=== PATIENT | female | born 1985 | race Caucasian/White ===

== ENCOUNTER 2016-08-02 09:28 | Emergency (ER) | payer MEDICAID ==
[2016-08-02 09:45] VITALS: BP 120/75
[2016-08-02] MEDS ORDERED: Ondansetron ODT TAB* 4 MG PO ONE (10:20)
--- NOTE | 2016-08-02 10:28 | UC ---
Abdominal Pain Female HPI - HPI Summary HPI Summary: Nausea, vomiting x 5 since noon yesterday. Has had 4 BMs, 2 formed and 2 loose. Denies fever or focal abdominal pain. Period is a few days late. 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 - History of Current Complaint Chief Complaint: UCGeneralIllness Stated Complaint: CANT KEEP ANYTHING DOWN Time Seen by Provider: 08/02/16 10:06 Hx Obtained From: Patient Hx Last Menstrual Period: 07/01/16 ?: No Onset/Duration: Gradual Onset, Lasting Hours Timing: Constant Severity Initially: Moderate Severity Currently: Moderate Location: Diffuse Radiates: No Character: Other - nausea Aggravating Factor(s): Food, Movement Alleviating Factor(s): NPO Associated Signs and Symptoms: Positive: Decreased Appetite, Nausea, Vomiting. Negative: Fever, Urinary Symptoms, Vaginal Bleeding Allergies/Adverse Reactions: Allergies Allergy/AdvReac Type Severity Reaction Status Date / Time Adhesive Tape Allergy Rash Verified 08/02/16 09:45 Latex Allergy Rash Verified 08/02/16 09:45 Prednisone AdvReac See Comment Verified 08/02/16 09:45 PMH/Surg Hx/FS Hx/Imm Hx Endocrine History Of: Denies: Diabetes, Thyroid Disease Cardiovascular History Of: Denies: Cardiac Disorders, Hypertension, Pacemaker/ICD Respiratory History Of: Denies: COPD, Asthma GI/ History Of: Reports: Kidney Stones - 2009, SURGERY Denies: Ulcer, Renal Disease Neurological History Of: Reports: Migraine - EXCEDRIN ONEIL 1-2 TABS PRN, LAST EPISODE - Surgical History Surgical History: Yes Surgery Procedure, Year, and Place: ganglion cyst removed May 2013 [facility] [place]. KIDNEY STONES 2008. left knee scope - Family History Known Family History: Positive: Hypertension Negative: Cardiac Disease, Diabetes - Social History Alcohol Use: Rare Alcohol Amount: 3-4 DRINKS/ YEAR Substance Use Type: None Smoking Status (MU): Heavy Every Day Tobacco Smoker Type: Cigarettes Amount Used/How Often: < 1/2 ppd 10 YEARS Length of Time of Smoking/Using Tobacco: 10 YEARS Have You Smoked in the Last Year: Yes When Did the Patient Quit Smoking/Using Tobacco: 10/31/15 Household Exposure Type: Cigarettes Review of Systems Constitutional: Negative Skin: Negative Eyes: Negative ENT: Negative Respiratory: Negative Cardiovascular: Negative Gastrointestinal: Vomiting Genitourinary: Negative Motor: Negative Neurovascular: Negative Musculoskeletal: Negative Neurological: Negative Psychological: Negative All Other Systems Reviewed And Are Negative: Yes Physical Exam Triage Information Reviewed: Yes Appearance: Well-Appearing, No Pain Distress, Well-Nourished Vital Signs: Initial Vital Signs Temp 98.4 F 08/02/16 09:38 Pulse 78 08/02/16 09:38 Resp 18 08/02/16 09:38 BP 120/75 08/02/16 09:38 Pulse Ox 98 08/02/16 09:38 Vital Signs Reviewed: Yes Eye Exam: Normal Eyes: Positive: Conjunctiva Clear ENT Exam: Normal ENT: Positive: Normal ENT inspection, Hearing grossly normal, Pharynx normal, TMs normal Dental Exam: Normal Neck exam: Normal Neck: Positive: Supple, Nontender, No Lymphadenopathy Respiratory Exam: Normal Respiratory: Positive: Chest non-tender, Lungs clear, Normal breath sounds, No respiratory distress, No accessory muscle use Cardiovascular Exam: Normal Cardiovascular: Positive: RRR, No Murmur Abdomen Description: Positive: No Organomegaly, Soft. Negative: CVA Tenderness (R), CVA Tenderness (L), Distended, Guarding, McBurney's Point Tenderness, Peritoneal Signs Musculoskeletal Exam: Normal Neurological Exam: Normal Psychological Exam: Normal Skin Exam: Normal Abd Pain Female Course/Dx - Differential Dx/Diagnosis Provider Diagnoses: Acute gastroenteritis Discharge - Discharge Plan Condition: Stable Disposition: HOME Prescriptions: Ondansetron TAB* [Zofran 4 MG Tab*] 4 mg PO Q6H PRN #6 tab PRN Reason: Nausea Patient Education Materials: Gastroenteritis (ED) Referrals: Alejandro Byrne MD [Primary Care Provider] - If Needed Additional Instructions: Please return for care if you have increasing abdominal pain, significant blood in vomit or stool, or if your vomiting is not completely resolved by tomorrow night.
== END 2016-08-02 10:34 | disposition home or self-care (01) ==
LOC: UCEAST 09:28
DX: K52.9 Noninfective gastroenteritis and colitis, unspecified (principal); F17.210 Nicotine dependence, cigarettes, uncomplicated
CPT/HCPCS: 84702; 99212; A9270-GY; G0463

== ENCOUNTER 2016-10-22 08:01 | Emergency (ER) | payer MEDICAID, OTHER ==
[2016-10-22] MEDS ORDERED: Ketorolac INJ* 30 MG/ML 1 ML VIAL IV PUSH ONE (08:56)
[2016-10-22] MEDS ORDERED: Ondansetron INJ* 2 MG/ML VIAL IV ONE (08:56)
[2016-10-22 09:06] LABS: Hematocrit 43 % (35-47); Hemoglobin 14.3 g/dl (12.0-16.0); Mean Corpuscular HGB Conc 33 g/dl (31-36); Mean Corpuscular Hemoglobin 31 pg (27-31); Mean Corpuscular Volume 94 fL (80-97); Mean Platelet Volume 9 um3 (7.4-10.4); Red Blood Count 4.56 10^6/ul (4.0-5.4); Red Cell Distribution Width 13 % (10.5-15); White Blood Count 12.1 10^3/ul (3.5-10.8)
[2016-10-22 09:09] LABS: UR Preg Internal Control QC Line Present
[2016-10-22 09:10] LABS: Manual Entry Verification HAN0055
[2016-10-22 09:12] LABS: Urine Bacteria 2+ (Absent); Urine Bilirubin Negative (Negative); Urine Glucose Negative (Negative); Urine Nitrite Positive (Negative)
[2016-10-22] MEDS ORDERED: cefTRIAXone VIAL(*) 1,000 MG in NS 0.9% 50 ML* 50 ML IVPB ONE (09:29)
--- NOTE | 2016-10-22 09:34 | RAD ---
INDICATION: Right flank pain COMPARISON: Renal sonogram March 01, 2016 TECHNIQUE: Noncontrast axial source images were acquired from the level hemidiaphragms to the symphysis pubis as part of CT imaging for renal stone. Lung bases: The lung bases are clear. Liver: The liver is normal in size. Noncontrast imaging shows no evidence of a hepatic mass or ductal dilatation. Gallbladder: There are no calcified gallstones. There is no evidence of wall thickening or pericholecystic fluid.. Spleen: The spleen is normal in size. The noncontrast CT appearance is normal. Pancreas: Noncontrast imaging shows no pancreatic mass or ductal dilitation. Adrenal glands: No masses are identified. Kidneys/Bladder: The CT appearance of the kidneys essentially unchanged from the February 26, 2016 examination. The right kidney remains enlarged relative to left and there is ill-defined hypodense expansion of the superior pole which on earlier sonography represented a cyst. This may be minimally larger. There is hydronephrosis with air within the collecting system. There is right-sided hydronephrosis. The only significant change has been the interval development of several additional small calcifications. There is no right-sided perinephric inflammatory change or evidence of a perinephric abscess. The right ureter is normal in caliber. The left kidney is unremarkable. Suggest correlation with clinical history and urologic referral as necessary. Adenopathy: There is no evidence of intraperitoneal or retroperitoneal adenopathy. Evaluation is limited without oral contrast. Fluid collections: There are no free or localized fluid collections. Vessels: The aorta and iliac vessels are normal in caliber. There are no significant atherosclerotic changes. The IVC appears normal Pelvic organs: The uterus and adnexa appear normal GI tract: Evaluation of the bowel is limited without oral contrast. The stomach, small bowel, and lower GI tract appear grossly normal. There are no obstructive findings. The appendix is visualized and appears normal. Soft tissues: No soft tissue abnormalities of the extraperitoneal abdomen or pelvis are identified. Osseous structures: There are no acute osseous findings. IMPRESSION: ENLARGED HYPODENSE RIGHT KIDNEY PERHAPS WITH AN UPPER POLE DOCUMENTED ON EARLIER ULTRASONOGRAPHY TO REPRESENT A CYST. HYDRONEPHROSIS WITH AIR WITHIN THE COLLECTING SYSTEM AND RIGHT-SIDED NEPHROLITHIASIS. WITH THE EXCEPTION OF A SLIGHT INCREASE IN THE NUMBER OF CALCIFICATIONS WITHIN THE COLLECTING SYSTEM THERE IS NO INTERVAL CHANGE.. SUGGEST UROLOGIC REFERRAL. FINDINGS DISCUSSED WITH EMERGENCY DEPARTMENT.
[2016-10-22 09:35] LABS: BUN/Creatinine Ratio 9.5 (8-20); C Reactive Protein 14.16 mg/L (< 5.00); Calcium 8.7 mg/dL (8.6-10.3); EGFR African American 102.4 (>60); EGFR Non-African American 79.6 (>60); Potassium 4.1 mmol/L (3.5-5.0); Total Bilirubin 0.5 mg/dL (0.2-1.0)
[2016-10-22] MEDS ORDERED: cefTRIAXone(*) 1 GM ADVAN ONE (09:43)
[2016-10-22] MEDS ORDERED: NS 0.9% 1000 ML* 1,000 ML IV ONE (09:56)
[2016-10-22] MEDS ORDERED: Morphine INJ* 4 MG/ML 1 ML SYRINGE IV ONE (12:08)
[2016-10-22 13:49] VITALS: BP 137/69
--- NOTE | 2016-10-23 19:15 | ED ---
Clayton Trujillo Anna, scribed for Jorge Ulloa MD on 10/22/16 at 0853 . Abdominal Pain/Female - HPI Summary HPI Summary: Patient is a 31 y/o female coming to [facility] presenting with the sudden onset of constant, right flank pain that began at 0200 this morning. The pain radiates to her front. She has felt nauseous and has not eaten anything. Denies diarrhea , constipation. LNMP was last week. Her history is significant for kidney stones , most recently in 2010. This pain is very similar to her previous kidney stones. Her history is also significant for kidney infection. Patient medications were reviewed on this visit. - History of Current Complaint Chief Complaint: EDFlankPain Stated Complaint: LOWER RT ABD PAIN Time Seen by Provider: 10/22/16 08:16 Hx Obtained From: Patient Hx Last Menstrual Period: 07/01/16 Onset/Duration: Sudden Onset, Lasting Hours, Still Present Timing: Constant Severity Initially: Moderate Severity Currently: Moderate Pain Intensity: 5 Allergies/Adverse Reactions: Allergies Allergy/AdvReac Type Severity Reaction Status Date / Time Adhesive Tape Allergy Rash Verified 10/22/16 08:04 Latex Allergy Rash Verified 10/22/16 08:04 Prednisone AdvReac See Comment Verified 10/22/16 08:04 PMH/Surg Hx/FS Hx/Imm Hx Endocrine/Hematology History: Denies: Hx Diabetes, Hx Thyroid Disease Cardiovascular History: Denies: Hx Hypertension, Hx Pacemaker/ICD Respiratory History: Denies: Hx Asthma, Hx Chronic Obstructive Pulmonary Disease (COPD) GI History: Denies: Hx Ulcer History: Reports: Hx Kidney Infection, Hx Kidney Stones - 2009, SURGERY, Other Problems/Disorders - hx of stones Denies: Hx Renal Disease Musculoskeletal History: Reports: Hx Tendonitis - BOTH WRISTS, Other Musculoskeletal History - LEFT KNEE INJURY, TENNIS ELBOW, RIGHT Denies: Hx Scoliosis Sensory History: Denies: Hx Contacts or Glasses, Hx Hearing Aid Opthamlomology History: Denies: Hx Contacts or Glasses Neurological History: Reports: Hx Headaches, Hx Migraine - EXCEDRIN ONEIL 1-2 TABS PRN, 11/02/15 LAST EPISODE Denies: Other Neuro Impairments/Disorders Psychiatric History: Denies: Hx Panic Disorder - Surgical History Surgery Procedure, Year, and Place: ganglion cyst removed May 2013 [facility] [place]. KIDNEY STONES 2008. left knee scope Hx Anesthesia Reactions: No Infectious Disease History: No Infectious Disease History: Denies: Hx Clostridium Difficile, Hx Hepatitis, Hx Human Immunodeficiency Virus (HIV), Hx of Known/Suspected MRSA, Hx Shingles, Hx Tuberculosis, Hx Known/ Suspected VRE, Hx Known/Suspected VRSA, History Other Infectious Disease, Traveled Outside the [place] in Last 30 Days - Family History Known Family History: Positive: Hypertension Negative: Cardiac Disease, Diabetes - Social History Alcohol Use: Rare Alcohol Amount: 3-4 DRINKS/ YEAR Substance Use Type: Reports: None Smoking Status (MU): Light Every Day Tobacco Smoker Type: Cigarettes Amount Used/How Often: < 1/2 ppd 10 YEARS Length of Time of Smoking/Using Tobacco: 10 YEARS Have You Smoked in the Last Year: Yes Review of Systems Gastrointestinal: Other - Denies constipation Positive: Abdominal Pain, Nausea. Negative: Diarrhea Psychological: Normal All Other Systems Reviewed And Are Negative: Yes Physical Exam - Summary Physical Exam Summary: VITAL SIGNS: Reviewed. GENERAL: Patient is a well-developed and nourished female who is lying comfortable in the stretcher. Patient is not in any acute respiratory distress. HEAD AND FACE: Normocephalic and atraumatic. EYES: PERRLA, EOMI x 2, No injected conjunctiva. EARS: Hearing grossly intact. Ear canals and tympanic membranes are WNL. MOUTH: Oropharynx within normal limits. NECK: Supple, trachea is midline, no adenopathy, no JVD. CHEST: Symmetric, no tenderness at palpation LUNGS: Clear to auscultation bilaterally. No wheezing or crackles. CVS: RRR, S1 and S2 present, no murmurs or gallops appreciated. ABDOMEN: Right CVA tenderness. Soft. No signs of distention. Positive bowel sounds. No rebound no guarding, and no masses palpated. No abdominal bruit or pulsations. EXTREMITIES: FROM in all major joints, no edema, no cyanosis or clubbing. NEURO: Alert and oriented x 3. No acute neurological deficits. Speech is normal. SKIN: Dry and warm Triage Information Reviewed: Yes Vital Signs On Initial Exam: Initial Vitals Temp Pulse Resp BP Pulse Ox 97.6 F 104 18 150/74 100 10/22/16 08:05 10/22/16 08:05 10/22/16 08:05 10/22/16 08:05 10/22/16 08:05 Vital Signs Reviewed: Yes Diagnostics - Vital Signs Vital Signs Temp Pulse Resp BP Pulse Ox 10/22/16 08:05 97.6 F 104 18 150/74 100 - Laboratory Result Diagrams: 10/22/16 08:50 10/22/16 08:45 Lab Statement: Any lab studies that have been ordered have been reviewed, and results considered in the medical decision making process. - CT CT abd/pel WO CT Interpretation: Positive (See Comments) CT Interpretation Completed By: Radiologist - IMPRESSION: ENLARGED HYPODENSE RIGHT KIDNEY PERHAPS WITH AN UPPER POLE DOCUMENTED ON EARLIER ULTRASONOGRAPHY TO REPRESENT A CYST. HYDRONEPHROSIS WITH AIR WITHIN THE COLLECTING SYSTEM AND RIGHT-SIDED NEPHROLITHIASIS. WITH THE EXCEPTION OF A SLIGHT INCREASE IN THE NUMBER OF CALCIFICATIONS WITHIN THE COLLECTING SYSTEM THERE IS NO INTERVAL CHANGE.. SUGGEST UROLOGIC REFERRAL. FINDINGS DISCUSSED WITH EMERGENCY DEPARTMENT. Re-Evaluation - Re-Evaluation First Eval Re-Evaluation Time: 12:13 Comment: The pain is currently 3/10. Discussed results and plan of care with patient. Patient verbalizes understanding and is agreeable with plan. Abdominal Pain Fem Course/Dx - Course Course Of Treatment: Test results show slight increase in WBC, CRP. Urine shows positive UTI. Abd/Pel CT reveals enlarged hypodense right kidney with a cyst and hydronephrosis with air within the collecting system and right-sided nephrolithiasis. No interval change. In the ED course, pt given IV fluids and Toradol for the pain, thinking the pt may have a kidney stone. The patient was started on Rocephin for her UTI. Now the patient does not have a kidney stone, she has only a right kidney cyst which is well known to the pt. Pt will be following with urologist. She was given an additional dose of morphine for the pain and is much more comfortable. Since she has no fever and her vital signs are stable, I believe she can be treated for UTI/pyelonephritis on an outpatient basis with Ciprofloxacin. She was instructed to return to the ED for fever, an increase in pain, nausea, vomiting, or any other symptoms. She understands and agrees. - Diagnoses Provider Diagnoses: UTI (urinary tract infection), Kidney Cyst - Provider Notifications Discussed Care Of Patient With: Dr. Hollingsworth (radiology) at 0928. Looks like patient has pyelonephritis. Discharge - Discharge Plan Condition: Stable Disposition: HOME Prescriptions: Ciprofloxacin TAB* [Cipro 500 MG TAB*] 500 mg PO BID #6 tab HYDROcodone/ACETAMIN 5-325 MG* [Tabernash 5-325 TAB*] 1 tab PO Q4H PRN #10 tab MDD 4 tabs /day PRN Reason: Pain Patient Education Materials: Ciprofloxacin (By mouth), Hydrocodone/ Acetaminophen (By mouth), Urinary Tract Infection in Women (ED), Kidney Cyst (ED ) Forms: *Work Release Referrals: Alejandro Byrne MD [Primary Care Provider] - Additional Instructions: Follow up with primary care physician in 2-3 days. Return to ED for new or worsening symptoms. The documentation as recorded by the Clayton mejias Anna accurately reflects the service I personally performed and the decisions made by , Jorge Ulloa MD.
--- NOTE | 2016-10-24 09:43 | PN ---
Progress Note - Progress Note Note: Patient preliminary urine culture grew E coli >100,000. patient placed on cipro will wait final culture.
== END 2016-10-22 13:49 | disposition home or self-care (01) ==
LOC: ED 08:01
DX: N39.0 Urinary tract infection, site not specified (principal); N28.1 Cyst of kidney, acquired; F17.210 Nicotine dependence, cigarettes, uncomplicated
CPT/HCPCS: 36415; 74176; 80053; 81003; 81015; 81025; 83605; 83690; 85025; 86140; 87077; 87086; 87186; 96360; 96374; 96375; 96376; 99283; J0696; J1885; J2270; J2405

== ENCOUNTER 2016-11-19 08:13 | Emergency (ER) | payer SELFPAY ==
[2016-11-19 08:27] VITALS: BP 134/69
--- NOTE | 2016-11-19 08:53 | UC ---
Jhonatan Trujillo Claudia, scribed for Eric Vincent MD on 11/19/16 at 0846 . Respiratory Complaint HPI - HPI Summary HPI Summary: 31 year old female presents to the [facility] with a constant cough lasting the past week or so. Pt admits to nasal discharge, chills but denies any fever. Pt states SOB when she is coughing. She states the cough is productive occasionally. but other times is a dry cough. She notes that this am she was coughing so much that she was unable to breath and decided to come to the [facility]. She denies any aggravating or alleviating factors, but notes she takes some NyQuil to help with sleeping. - History of Current Complaint Chief Complaint: UCRespiratory Stated Complaint: URI Time Seen by Provider: 11/19/16 08:41 Hx Obtained From: Patient Hx Last Menstrual Period: 2 months ago Onset/Duration: Gradual Onset, Lasting Weeks Character: Cough: Productive Associated Signs And Symptoms: Negative: Fever, Chills - Allergies/Home Medications Allergies/Adverse Reactions: Allergies Allergy/AdvReac Type Severity Reaction Status Date / Time Adhesive Tape Allergy Rash Verified 10/22/16 08:04 Latex Allergy Rash Verified 10/22/16 08:04 Prednisone AdvReac See Comment Verified 10/22/16 08:04 PMH/Surg Hx/FS Hx/Imm Hx Previously Healthy: Yes - Surgical History Surgical History: Yes Surgery Procedure, Year, and Place: ganglion cyst removed May 2013 [facility] – [place]. KIDNEY STONES 2008. left knee scope - Family History Known Family History: Positive: Hypertension, Diabetes Negative: Cardiac Disease - Social History Occupation: Employed Full-time Alcohol Use: Rare Alcohol Amount: 3-4 DRINKS/ YEAR Substance Use Type: None Smoking Status (MU): Light Every Day Tobacco Smoker Type: Cigarettes Amount Used/How Often: < 1/2 ppd 10 YEARS Length of Time of Smoking/Using Tobacco: 10 YEARS Have You Smoked in the Last Year: Yes When Did the Patient Quit Smoking/Using Tobacco: 10/31/15 Household Exposure Type: Cigarettes Review of Systems Constitutional: Fever - NO FEVER, Chills Skin: Negative Eyes: Negative ENT: Nasal Discharge Respiratory: Shortness Of Breath, Cough Cardiovascular: Negative Gastrointestinal: Negative Genitourinary: Negative Motor: Negative Neurovascular: Negative Musculoskeletal: Negative Neurological: Negative Psychological: Negative All Other Systems Reviewed And Are Negative: Yes Physical Exam Triage Information Reviewed: Yes Appearance: Well-Appearing, No Pain Distress, Well-Nourished Vital Signs: Initial Vital Signs Temp 98.6 F 11/19/16 08:24 Pulse 71 11/19/16 08:24 Resp 18 11/19/16 08:24 BP 134/69 11/19/16 08:24 Pulse Ox 99 11/19/16 08:24 Vital Signs Reviewed: Yes Eyes: Positive: Conjunctiva Clear ENT: Positive: Normal ENT inspection, Hearing grossly normal, Pharynx normal Neck exam: Normal Neck: Positive: Supple, Nontender, No Lymphadenopathy Respiratory Exam: Normal Respiratory: Positive: Chest non-tender, Lungs clear, Normal breath sounds Cardiovascular: Positive: RRR, No Murmur, Pulses Normal Skin Exam: Normal UC Diagnostic Evaluation - Laboratory O2 Sat by Pulse Oximetry: 99 Respiratory Course/Dx - Differential Dx/Diagnosis Provider Diagnoses: VIRAL BRONCHITIS Discharge - Discharge Plan Condition: Stable Disposition: HOME Prescriptions: Guaifenesin-Codeine [Cheratussin AC] 10 ml PO Q8H PRN #120 ml MDD 30 ml PRN Reason: Cough Patient Education Materials: Acute Bronchitis (ED) Referrals: Alejandro Byrne MD [Primary Care Provider] - If Needed Additional Instructions: viral bronchitis no need for any antibiotics cont. with rest, increase fluid, tylenol as needed for pain or fever The documentation as recorded by the Jhonatan mejias Claudia accurately reflects the service I personally performed and the decisions made by Melisa snell Hossein, MD.
== END 2016-11-19 09:00 | disposition home or self-care (01) ==
LOC: UCEAST 08:13
DX: J20.8 Acute bronchitis due to other specified organisms (principal)
CPT/HCPCS: 99212; G0463

== ENCOUNTER 2017-03-11 08:13 | Emergency (ER) | payer SELFPAY ==
[2017-03-11] MEDS ORDERED: Ketorolac INJ* 30 MG/ML 1 ML VIAL IV PUSH ONE (08:38)
[2017-03-11] MEDS ORDERED: Ondansetron INJ* 2 MG/ML VIAL IV ONE (08:39)
--- NOTE | 2017-03-11 08:51 | ED ---
Abdominal Pain/Female - HPI Summary HPI Summary: Patient is a 31yo F with a history of kidney stones presents with right flank pain rated a 5/10 which radiates to the right lower quadrant. She notes to darkening urine, but denies any feelings of obstruction. Endorses nausea. Denies vomiting/diarrhea/constipation. Denies vaginal bleeding or discharge. Denies fevers, sweats, or chills. Last visit early in the year, they noted many kidney stones still in the kidney, but nothing obstructing. She was given abx, and states she still has some. The pain is sharp and cramping, intermittent and worse with movement. Better with rest and deep breaths. Denies weakness or other complaints at this time. - History of Current Complaint Chief Complaint: EDFlankPain Stated Complaint: RT FLANK PAIN Time Seen by Provider: 03/11/17 08:31 Hx Obtained From: Patient Hx Last Menstrual Period: 2 months ago ?: No Onset/Duration: Sudden Onset Timing: Intermittent Episode Lasting Severity Initially: Moderate Severity Currently: Moderate Pain Intensity: 4 Pain Scale Used: 0-10 Numeric Location: Flank Radiates: Yes Radiates to: RLQ Character: Sharp, Cramping Aggravating Factor(s): Nothing Alleviating Factor(s): Nothing Associated Signs and Symptoms: Positive: Nausea - Risk Factors Ectopic Risk Factor: Negative Ovarian Torsion Risk Factor: Reproductive Age Allergies/Adverse Reactions: Allergies Allergy/AdvReac Type Severity Reaction Status Date / Time Adhesive Tape Allergy Rash Verified 03/11/17 08:17 Latex Allergy Rash Verified 03/11/17 08:17 Prednisone AdvReac See Comment Verified 03/11/17 08:17 PMH/Surg Hx/FS Hx/Imm Hx Previously Healthy: Yes Endocrine/Hematology History: Denies: Hx Diabetes, Hx Thyroid Disease Cardiovascular History: Denies: Hx Hypertension, Hx Pacemaker/ICD Respiratory History: Denies: Hx Asthma, Hx Chronic Obstructive Pulmonary Disease (COPD) GI History: Denies: Hx Ulcer History: Reports: Hx Kidney Infection, Hx Kidney Stones - 2010, SURGERY, Other Problems/Disorders - hx of stones Denies: Hx Renal Disease Musculoskeletal History: Reports: Hx Tendonitis - BOTH WRISTS, Other Musculoskeletal History - LEFT KNEE INJURY, TENNIS ELBOW, RIGHT Denies: Hx Scoliosis Sensory History: Denies: Hx Contacts or Glasses, Hx Hearing Aid Opthamlomology History: Denies: Hx Contacts or Glasses Neurological History: Reports: Hx Headaches, Hx Migraine - EXCEDRIN ONEIL 1-2 TABS PRN, 11/02/15 LAST EPISODE Denies: Other Neuro Impairments/Disorders Psychiatric History: Denies: Hx Panic Disorder - Surgical History Surgery Procedure, Year, and Place: ganglion cyst removed May 2013 [facility] [place]. KIDNEY STONES 2008. left knee scope Hx Anesthesia Reactions: No - Immunization History Hx Pertussis Vaccination: No Immunizations Up to Date: Unable to Obtain/Confirm Infectious Disease History: No Infectious Disease History: Denies: Hx Clostridium Difficile, Hx Hepatitis, Hx Human Immunodeficiency Virus (HIV), Hx of Known/Suspected MRSA, Hx Shingles, Hx Tuberculosis, Hx Known/ Suspected VRE, Hx Known/Suspected VRSA, History Other Infectious Disease, Traveled Outside the [place] in Last 30 Days - Family History Known Family History: Positive: Hypertension, Diabetes Negative: Cardiac Disease - Social History Occupation: Employed Full-time Lives: With Family Alcohol Use: Rare Alcohol Amount: 3-4 DRINKS/ YEAR Hx Substance Use: No Substance Use Type: Reports: None Hx Tobacco Use: Yes Smoking Status (MU): Heavy Every Day Tobacco Smoker Type: Cigarettes Amount Used/How Often: < 1/2 ppd 10 YEARS Length of Time of Smoking/Using Tobacco: 10 YEARS Have You Smoked in the Last Year: Yes Review of Systems - ROS Summary Review of Systems Summary: Constitutional: The patient denies fever, EPPS. HEENT: Head: The patient denies headaches or dizziness. Eyes: The patient denies diplopia, blurry vision, eye pain, eye discharge, photophobia. Throat: The patient denies sore throats or hoarseness. Cardiovascular: The patient denies chest pain, palpitations, syncope, night cramps, or orthostasis. Respiratory: The patient denies cough, sputum production, hemoptysis, dyspnea, wheezing. Gastrointestinal: The patient denies odynophagia, dysphagia, hematemesis, melenemesis. Postive for nausea and RLQ pain referred from Right flank. Denies vomiting. Denies constipation or diarrhea. Genitourinary: Patient endorses darkened urine, but denies gross hematuria. Patient endorses right sided back pain. Denies vaginal discharge, vaginal bleeding. Denies other urinary symptoms. Endocrine: The patient denies polydipsia, polyuria, or polyphagia. Muscles: The patient denies myalgia, strain or weakness. Joints: The patient denies arthralgia and/or arthritis. Neurologic: The patient denies headache, loss of consciousness, or seizure. Dermatologic: The patient denies hyperpigmentation, rash, or photosensitivity. Constitutional: Negative Negative: Fever, Chills, Fatigue Eyes: Negative Cardiovascular: Negative Respiratory: Negative Negative: Shortness Of Breath, Cough Positive: Nausea. Negative: Abdominal Pain, Vomiting, Diarrhea Positive: other - darkened urine Musculoskeletal: Negative Skin: Negative Neurological: Negative All Other Systems Reviewed And Are Negative: Yes Physical Exam - Summary Physical Exam Summary: Appearance: WDW, comfortable, pleasant, alert Skin: Soft dry skin, no lesions. Nailbeds pink with no cyanosis or clubbing. No petechia noted. Eyes: VETO, EOMI, Conjunctiva pink with no redness or exudates. Mouth: Dentition without lesions. Moist mucosa Neck: Full range of motion. Palpable thyroid. Trachea at midline. No lymphadenopathy. Pulm: Chest symmetrical expansion. No deformities on posterior chest wall. Lungs clear to auscultation and percussion, without adventitious sounds. CV: No JVD. No deformities on anterior chest wall. Heart sounds-RRR, Normal S1 and single S2. No S3, S4, rubs, or murmurs. Carotids 2+ bilaterally without bruits. . exam not performed GI: Bowel sounds WNL in all 4 quadrants. No pain on deep palpation of all 4 quadrants. Negative ferrer's, negative obturator. No pain over mcburney's point. CVA tenderness on R flank. Musculoskeletal: Flexion and extension of neck without limitations. ROM WNL in all extremities. No deformities noted. Pulses full and equal. Neuro: Motor strength is 5/5 in upper and lower extremities bilaterally. A&OX3 Psych: Logical, coherent Triage Information Reviewed: Yes Vital Signs On Initial Exam: Initial Vitals Temp Pulse Resp BP Pulse Ox 98.2 F 97 15 118/92 100 03/11/17 08:17 03/11/17 08:17 03/11/17 08:17 03/11/17 08:17 03/11/17 08:17 Vital Signs Reviewed: Yes Appearance: Positive: Well-Appearing, Well-Nourished Skin: Positive: Warm, Skin Color Reflects Adequate Perfusion Head/Face: Positive: Normal Head/Face Inspection Neck: Positive: Supple, No Lymphadenopathy Respiratory/Lung Sounds: Positive: Clear to Auscultation, Breath Sounds Present Cardiovascular: Positive: Normal, RRR, Pulses are Symmetrical in both Upper and Lower Extremities Abdomen Description: Positive: Nontender, No Organomegaly, Soft Bowel Sounds: Positive: Present Musculoskeletal: Positive: Normal, Strength/ROM Intact Neurological: Positive: Speech Normal Psychiatric: Positive: Normal AVPU Assessment: Alert - Mikayla Coma Scale Coma Scale Total: 15 Diagnostics - Vital Signs Vital Signs Temp Pulse Resp BP Pulse Ox 03/11/17 08:35 86 100 03/11/17 08:33 134/78 03/11/17 08:17 98.2 F 97 15 118/92 100 - Laboratory Result Diagrams: 03/11/17 08:51 03/11/17 08:51 Lab Statement: Any lab studies that have been ordered have been reviewed, and results considered in the medical decision making process. Abdominal Pain Fem Course/Dx - Course Course Of Treatment: Patient presents to the ED with right flank pain radiating to the RLQ with nausea. Likely kidney stone pathology and CT obtained. Given zofran and toradol through IV. Improvement of symptoms. IMPRESSION: 1. CHRONIC AND/OR RECURRENT GAS WITHIN THE COLLECTING SYSTEM. CONSIDER EMPHYSEMATOUS. PYELONEPHRITIS IN THE APPROPRIATE CLINICAL SETTING. RIGHT-SIDED HYDRONEPHROSIS AND. RIGHT-SIDED NEPHROLITHIASIS WITHOUT SIGNIFICANT INTERVAL CHANGE. SUGGEST UROLOGIC REFERRAL. INDICATED. 2. 3.8 CM LEFT ADNEXAL CYST. SUGGEST NONEMERGENT FOLLOW-UP PELVIC SONOGRAPHY. Called Dr. Lala who recommended she follow up with her previous urologist in [place]. Patient states this is Dr. Carpenter who she did not like and does not want to return to [place] for any reason. Discussed need for transfer to [facility] in which she also declines. Offers admission here after UA shows potential pyelonephritis with WBC, RBC, Leuks, etc. Again, she is counseled to stay, and again she declines. She is signing out AMA. All these treatment options explained to patient. Patient understands the plan, voices no concerns at this time and understands the return precatuions given to them if any symptoms become worse. AMA documents signed by patient. Bactrim x 14 days given. She agrees to return for worsening symptoms. Given Dr. Lala for referral. - Diagnoses Differential Diagnosis: Positive: Renal Colic, Urinary Tract Infection, Other - renal stones Provider Diagnoses: Pyelonephritis Discharge - Discharge Plan Condition: Stable Disposition: AGAINST MEDICAL ADVICE Prescriptions: Sulfamethox/Trimethoprim DS* [Bactrim DS 800/160 TAB*] 1 tab PO BID #28 tab Patient Education Materials: Kidney Infection (ED) Referrals: No Primary Care Phys,NOPCP [Primary Care Provider] - Spencer Carpenter MD [Medical Doctor] - Balwinder Lala MD [Medical Doctor] - Additional Instructions: Please follow up with urology as soon as possible You have been given Bactrim x 14 days If symptoms worse - you need to return to the ED As discussed, I feel you should stay in the hospital as an inpatient. You are refusing this, so must sign out AMA.
[2017-03-11 09:11] LABS: Hematocrit 42 % (35-47); Hemoglobin 14.2 g/dl (12.0-16.0); Mean Corpuscular HGB Conc 34 g/dl (31-36); Mean Corpuscular Hemoglobin 32 pg (27-31); Mean Corpuscular Volume 95 fL (80-97); Mean Platelet Volume 9 um3 (7.4-10.4); Red Blood Count 4.41 10^6/ul (4.0-5.4); Red Cell Distribution Width 13 % (10.5-15); White Blood Count 14.2 10^3/ul (3.5-10.8)
[2017-03-11 09:23] LABS: ALT 17 U/L (7-52); AST 15 U/L (13-39); Albumin 4.2 g/dL (3.2-5.2); Alkaline Phosphatase 78 U/L (34-104); Anion Gap 6 mmol/L (2-11); BUN/Creatinine Ratio 11.3 (8-20); Blood Urea Nitrogen 8 mg/dL (6-24); C Reactive Protein 20.81 mg/L (< 5.00); CO2 Carbon Dioxide 23 mmol/L (22-32); Calcium 8.6 mg/dL (8.6-10.3); Chloride 108 mmol/L (101-111); Creatine Kinase 67 U/L (10-223); EGFR African American 124.3 (>60); EGFR Non-African American 96.7 (>60); Globulin 2.7 g/dL (2-4); Glucose 96 mg/dL (70-100); Lipase 34 U/L (11.0-82.0); Potassium 3.9 mmol/L (3.5-5.0); Sodium 137 mmol/L (133-145); Total Protein 6.9 g/dL (6.4-8.9)
--- NOTE | 2017-03-11 09:27 | RAD ---
INDICATION: Right flank pain COMPARISON: CT October 22, 2016; CT February 26, 2016 TECHNIQUE: Noncontrast axial source images were acquired from the level hemidiaphragms to the symphysis pubis as part of CT imaging for renal stone. Lung bases: There is mild chronic airspace disease in the right lung base. Liver: The liver is normal in size. Noncontrast imaging shows no evidence of a hepatic mass or ductal dilatation. Gallbladder: There are no calcified gallstones. There is no evidence of wall thickening or pericholecystic fluid.. Spleen: The spleen is normal in size. The noncontrast CT appearance is normal. Pancreas: Noncontrast imaging shows no pancreatic mass or ductal dilitation. Adrenal glands: No masses are identified. Kidneys/Bladder: The CT appearance of the kidneys is unchanged. The right kidney is larger than the left and there is a dominant cyst in the upper pole measure up to 7 cm. There is right-sided hydronephrosis with numerous renal calculi which are essentially unchanged. There is gas within the collecting system, a chronic finding and proximal related to new or recurrent emphysematous pyelonephritis. Overall the appearance is unchanged. The bladder is nearly empty. Adenopathy: There is no evidence of intraperitoneal or retroperitoneal adenopathy. Evaluation is limited without oral contrast. Fluid collections: There are no free or localized fluid collections. Vessels: The aorta and iliac vessels are normal in caliber. There are no significant atherosclerotic changes. The IVC appears normal Pelvic organs: The uterus is unremarkable. There is a 3.8 cm left adnexal cyst. This could be evaluated with follow-up ultrasonography GI tract: Evaluation of the bowel is limited without oral contrast. The stomach, small bowel, and lower GI tract appear grossly normal. There are no obstructive findings. The appendix is visualized and appears normal. Soft tissues: No soft tissue abnormalities of the extraperitoneal abdomen or pelvis are identified. Osseous structures: There are no acute osseous findings. IMPRESSION: 1. CHRONIC AND/OR RECURRENT GAS WITHIN THE COLLECTING SYSTEM. CONSIDER EMPHYSEMATOUS PYELONEPHRITIS IN THE APPROPRIATE CLINICAL SETTING. RIGHT-SIDED HYDRONEPHROSIS AND RIGHT-SIDED NEPHROLITHIASIS WITHOUT SIGNIFICANT INTERVAL CHANGE. SUGGEST UROLOGIC REFERRAL INDICATED 2. 3.8 CM LEFT ADNEXAL CYST. SUGGEST NONEMERGENT FOLLOW-UP PELVIC SONOGRAPHY
[2017-03-11] MEDS ORDERED: Acetaminophen TAB* 325 MG PO ONE (13:01)
[2017-03-11 13:58] LABS: Urine Bacteria Absent (Absent); Urine Bilirubin Negative (Negative); Urine Glucose Negative (Negative); Urine Nitrite Negative (Negative)
[2017-03-11 14:46] VITALS: BP 105/45
--- NOTE | 2017-03-13 14:51 | PN ---
Progress Note - Progress Note Date of Service: 03/13/17 Note: Patient placed on bactrim which final culture shows is sensitive to. no further action needed.
== END 2017-03-11 15:02 | disposition left against medical advice (07) ==
LOC: ED 08:13
DX: N12 Tubulo-interstitial nephritis, not specified as acute or chronic (principal); F17.210 Nicotine dependence, cigarettes, uncomplicated; R11.0 Nausea; Z53.21 Procedure and treatment not carried out due to patient leaving prior to being seen by health care provider
CPT/HCPCS: 36415; 74176; 80053; 81003; 81015; 82550; 83605; 83690; 84702; 85025; 86140; 87077; 87086; 87186; 96374; 96375; 99283; A9270-GY; J1885; J2405

== ENCOUNTER 2017-12-25 12:38 | Emergency (ER) | payer OTHER ==
[2017-12-25 14:54] VITALS: BP 145/81
--- NOTE | 2017-12-25 15:20 | UC ---
Skin Complaint HPI - HPI Summary HPI Summary: The patient is a 32-year-old female with a about a one-week history of progressively worsening rash left hip. The rash is minimally pruritic. The rash is painful. It has enlarged in size. She has started to develop some small pustules in the center of the rash. The center of the rashes indurated. She denies any fever or chills. She denies any insect bites. There is no known tick bite. He has no headache muscle ache or joint aches. She has no history of MRSA. - History of Current Complaint Chief Complaint: UCRash Stated Complaint: RASH Hx Obtained From: Patient Hx Last Menstrual Period: 2 months ago Onset/Duration: Gradual Onset, Lasting Days Skin Exposure Onset/Duration: Days Ago Onset Severity: Mild Current Severity: Mild Pain Intensity: 2 Pain Scale Used: 0-10 Numeric Location: Discrete Character: Swelling, Pruritus, Pain, Redness, Raised, Painful Aggravating Factor(s): Touch - Allergy/Home Medications Allergies/Adverse Reactions: Allergies Allergy/AdvReac Type Severity Reaction Status Date / Time Adhesive Tape Allergy Rash Verified 03/11/17 08:17 Latex, Natural Rubber Allergy Rash Verified 12/25/17 14:56 prednisone Allergy See Comment Verified 12/25/17 14:56 Review of Systems Constitutional: Negative Skin: Rash Eyes: Negative ENT: Negative Respiratory: Negative Cardiovascular: Negative Gastrointestinal: Negative Genitourinary: Negative Motor: Negative Neurovascular: Negative Musculoskeletal: Negative Neurological: Negative Psychological: Negative Is Patient Immunocompromised?: No All Other Systems Reviewed And Are Negative: Yes PMH/Surg Hx/FS Hx/Imm Hx Previously Healthy: Yes - Surgical History Surgical History: Yes Surgery Procedure, Year, and Place: ganglion cyst removed May 2013 [facility]. KIDNEY STONES 2008. left knee scope - Family History Known Family History: Positive: Hypertension, Diabetes Negative: Cardiac Disease - Social History Alcohol Use: Rare Alcohol Amount: 3-4 DRINKS/ YEAR Substance Use Type: None Smoking Status (MU): Heavy Every Day Tobacco Smoker Type: Cigarettes Amount Used/How Often: < 1/2 ppd 10 YEARS Length of Time of Smoking/Using Tobacco: 10 YEARS Have You Smoked in the Last Year: Yes When Did the Patient Quit Smoking/Using Tobacco: 10/31/15 Household Exposure Type: Cigarettes Physical Exam Triage Information Reviewed: Yes Appearance: Well-Appearing, No Pain Distress, Well-Nourished Vital Signs: Initial Vital Signs Temp 98.0 F 12/25/17 14:48 Pulse 92 12/25/17 14:48 Resp 16 12/25/17 14:48 BP 145/81 12/25/17 14:48 Pulse Ox 100 12/25/17 14:48 Vital Signs Reviewed: Yes Eyes: Positive: Conjunctiva Clear ENT: Positive: Hearing grossly normal. Negative: Nasal congestion, Nasal drainage, Trismus, Muffled voice, Hoarse voice Respiratory: Positive: Lungs clear, Normal breath sounds, No respiratory distress, No accessory muscle use Cardiovascular: Positive: RRR, No Murmur Musculoskeletal: Positive: Strength Intact, ROM Intact, No Edema Neurological: Positive: Alert, Fatigued Skin Exam: Other - see image Course/Dx - Diagnoses Provider Diagnoses: cellulitis left hip. ?early abscess Discharge - Sign-Out/Discharge Documenting (check all that apply): Patient Departure - Discharge Plan Condition: Stable Disposition: HOME Prescriptions: DOXYcycline CAP(*) [DOXYcycline 100MG CAP(*)] 100 mg PO BID #20 cap Patient Education Materials: Cellulitis (ED) Referrals: No Primary Care Phys,NOPCP [Primary Care Provider] - Additional Instructions: this may develop an abscess and need to be drained RETURN FOR NEW OR WORSENING SYMPTOMS warm soapy compresses at least twice daily don't squeeze recheck in 2-3 days if not improved - Billing Disposition and Condition Condition: STABLE Disposition: Home Images Front/Back of Body, Lg ([place]): 1 - rash at left beltline, 4x 10 cm ovoid rash, central 2x2 cm area of induration, 2-3 minute pustules developing
== END 2017-12-25 15:39 | disposition home or self-care (01) ==
LOC: UCEAST 12:38
DX: L03.116 Cellulitis of left lower limb (principal); Z91.040 Latex allergy status; Z88.8 Allergy status to other drugs, medicaments and biological substances; Z91.048 Other nonmedicinal substance allergy status; Z82.49 Family history of ischemic heart disease and other diseases of the circulatory system; Z83.3 Family history of diabetes mellitus; Z87.891 Personal history of nicotine dependence
CPT/HCPCS: 99212; G0463

== ENCOUNTER 2017-12-27 10:43 | Emergency (ER) | payer OTHER ==
[2017-12-27 11:17] VITALS: BP 133/90
--- NOTE | 2017-12-27 11:47 | UC ---
Skin Complaint HPI - HPI Summary HPI Summary: This is randell Blanchard documenting for Dr. Jorge Ulloa MD. Pt is 32 y/o F who presents to [facility] c/o cellulitis. She was diagnosed with cellulitis a few days ago in her left hip and left flank, but the symptoms have worsened. A [place] was drawn around her cellulitis when she was first seen, and the rash has spread beyond that [place]. Rates her pain intensity as 4/10 in severity. Notes intermittent chills. Denies fever. - History of Current Complaint Chief Complaint: UCRash Time Seen by Provider: 12/27/17 11:20 Stated Complaint: RASH Hx Obtained From: Patient Hx Last Menstrual Period: implant Onset/Duration: Lasting Days Skin Exposure Onset/Duration: Days Ago Current Severity: Moderate Pain Intensity: 4 Pain Scale Used: 0-10 Numeric Location: Other - Left hip and left flank Character: Pain Associated Signs & Symptoms: Positive: Fever - NEGATIVE, Chills - intermittent, Rash - Allergy/Home Medications Allergies/Adverse Reactions: Allergies Allergy/AdvReac Type Severity Reaction Status Date / Time Adhesive Tape Allergy Rash Verified 12/27/17 11:18 Latex, Natural Rubber Allergy Rash Verified 12/27/17 11:18 prednisone Allergy See Comment Verified 12/27/17 11:18 Review of Systems Constitutional: Fever - NEGATIVE, Chills - intermittent Skin: Rash All Other Systems Reviewed And Are Negative: Yes PMH/Surg Hx/FS Hx/Imm Hx GI/ History: Kidney Stones Cancer History: Prostate Cancer - NEGATIVE - Surgical History Surgical History: Yes Surgery Procedure, Year, and Place: ganglion cyst removed May 2013 [facility]. KIDNEY STONES 2008. left knee scope - Family History Known Family History: Positive: Hypertension, Diabetes Negative: Cardiac Disease - Social History Alcohol Use: Rare Alcohol Amount: 3-4 DRINKS/ YEAR Substance Use Type: None Smoking Status (MU): Heavy Every Day Tobacco Smoker Type: Cigarettes Amount Used/How Often: < 1/2 ppd 10 YEARS Length of Time of Smoking/Using Tobacco: 10 YEARS Have You Smoked in the Last Year: Yes When Did the Patient Quit Smoking/Using Tobacco: 10/31/15 Household Exposure Type: Cigarettes Physical Exam - Summary Physical Exam Summary: VITAL SIGNS: Reviewed. GENERAL: Patient is a well-developed and nourished (MALE OR FEMALE) who is lying comfortable in the stretcher. Patient is not in any acute respiratory distress. HEAD AND FACE: Normocephalic EYES: PERRLA, EOMI x 2. EARS: Hearing grossly intact. MOUTH: Oropharynx within normal limits. NECK: Supple, trachea is midline, no adenopathy, no JVD, no carotid bruit. CHEST: Symmetric, no tenderness at palpation LUNGS: Clear to auscultation bilaterally. No wheezing or crackles. CVS: Regular rate and rhythm, S1 and S2 present, no murmurs or gallops appreciated. ABDOMEN: Soft, non-tender. Bowel sounds are normal. No abdominal abnormal pulsations. EXTREMITIES: Full ROM in all major joints, no edema, no cyanosis or clubbing. NEURO: Alert and oriented x 3. No acute neurological deficits. Speech is normal and follows commands. SKIN: Erythematous in left flank and left hip area. Dry and warm Triage Information Reviewed: Yes Vital Signs: Initial Vital Signs Temp 98 F 12/27/17 11:15 Pulse 87 12/27/17 11:15 Resp 17 12/27/17 11:15 BP 133/90 12/27/17 11:15 Pulse Ox 100 12/27/17 11:15 Vital Signs Reviewed: Yes Course/Dx - Course Course Of Treatment: 32-year-old female with worsens and redness in the left hip. The patient is only taking doxycycline and not improving. Therefore I will change the medication to Bactrim twice a day and also was sent for cultures. Patient was instructed that if the symptoms become worse on Bactrim the patient she'll go to the emergency department for further workup and management. The patient understands and agrees. Patient is hemodynamically stable alert and oriented 3. - Diagnoses Provider Diagnoses: Cellulitis Discharge - Sign-Out/Discharge Documenting (check all that apply): Patient Departure - Discharge Plan Condition: Stable Disposition: HOME Prescriptions: Sulfamethox/Trimethoprim DS* [Bactrim DS 800/160 TAB*] 1 tab PO BID #20 tab Patient Education Materials: Cellulitis (ED) Referrals: [facility] [place] [facility] [Outside] No Primary Care Phys,NOPCP [Primary Care Provider] - Additional Instructions: Take medications as instructed and adhere to plan Take Acetaminophen or ibuprofen for pain or fever Increase your fluid intake Return to the or go to the emergency department if symptoms worsen Follow-up with primary care physician in next 2-3 days - Billing Disposition and Condition Condition: STABLE Disposition: Home
== END 2017-12-27 12:05 | disposition home or self-care (01) ==
LOC: UCEAST 10:43
DX: L03.116 Cellulitis of left lower limb (principal); L03.319 Cellulitis of trunk, unspecified; Z91.040 Latex allergy status; Z88.8 Allergy status to other drugs, medicaments and biological substances; Z91.048 Other nonmedicinal substance allergy status; F17.210 Nicotine dependence, cigarettes, uncomplicated
CPT/HCPCS: 87070; 87205; 99212; G0463

== ENCOUNTER → 2018-06-17 09:42 | Emergency (ER) | payer OTHER ==
[~2018-06-17 09:42] MED LIST: NS 0.9% 1000 ML* 1,000 ML IV ONE; cefTRIAXone(*) 1 GM in NS 0.9% 50 ML* 50 ML IVPB ONE
[2018-06-17 10:21] LABS: Urine Appearance Cloudy; Urine Bacteria Absent (Absent); Urine Bilirubin Negative (Negative); Urine Blood Negative (Negative); Urine Color Yellow; Urine Glucose Negative (Negative); Urine Ketones Negative (Negative); Urine Nitrite Positive (Negative); Urine Protein Negative (Negative); Urine Red Blood Cell 2+(6-10/hpf) (Absent); Urine Specific Gravity 1.021 (1.010-1.030); Urine Urobilinogen Negative (Negative); Urine White Blood Cell 3+(>20/hpf) (Absent)
--- NOTE | 2018-06-17 10:33 | ED ---
Back Pain - HPI Summary HPI Summary: Patient is a 33-year-old female with hx of pyelonephritis and nephrolithiasis presenting to the ED with 5/10 bilateral flank pain, worse on the left. The pain began approx. 1 week ago and is described as aching/pinching. Pain is constant, does not come and go, but is worse with movement. Patient notes increased body aches the past week, diarrhea x 2days, and feelings of fever yesterday. Urine is dark, but pt denies any pain, burning, or odor with urination. Denies nausea or vomiting. Has taken occasional ibuprofen and heat for pain. Patient also complains of right shoulder pain. Pt reports a fall in Mar. for which she has been worked up for by PCP/ortho, no previous findings on X-rays and is in the process of obtaining an MRI. Patient re-injured the area 4 days ago after another fall from a ladder. Pain is located on the anterior aspect of the right shoulder. Pt is able to continue to use arm. - History of Current Complaint Chief Complaint: EDFlankPain Stated Complaint: FLANK PAIN Time Seen by Provider: 06/17/18 09:54 Hx Obtained From: Patient Hx Last Menstrual Period: implant Onset/Duration: Gradual Onset, Lasting Days Onset/Duration: Started Days Ago Timing: Constant Back Pain Location: Is Discrete @ - left and right flank Severity Currently: Moderate Pain Intensity: 5 Pain Scale Used: 0-10 Numeric Character: Aching - and pinching Aggravating Symptom(s): Movement Alleviating Symptom(s): Rest, Position Associated Signs And Symptoms: Positive: Fever, Weakness, Flank Pain - Allergies/Home Medications Allergies/Adverse Reactions: Allergies Allergy/AdvReac Type Severity Reaction Status Date / Time Adhesive Tape Allergy Rash Verified 06/17/18 10:05 Latex, Natural Rubber Allergy Rash Verified 06/17/18 10:05 prednisone Allergy See Comment Verified 06/17/18 10:05 Home Medications: Home Medications Ibuprofen 200 mg PO SEE INSTRUCTIONS PRN 06/17/18 [History Confirmed 06/17/18] PMH/Surg Hx/FS Hx/Imm Hx Endocrine/Hematology History: Denies: Hx Diabetes, Hx Thyroid Disease Cardiovascular History: Denies: Hx Hypertension, Hx Pacemaker/ICD Respiratory History: Denies: Hx Asthma, Hx Chronic Obstructive Pulmonary Disease (COPD) GI History: Denies: Hx Ulcer History: Reports: Hx Kidney Infection, Hx Kidney Stones - 2010, SURGERY, Other Problems/Disorders - hx of stones Denies: Hx Renal Disease Musculoskeletal History: Reports: Hx Tendonitis - BOTH WRISTS, Other Musculoskeletal History - LEFT KNEE INJURY, TENNIS ELBOW, RIGHT Denies: Hx Scoliosis Sensory History: Denies: Hx Contacts or Glasses, Hx Hearing Aid Opthamlomology History: Denies: Hx Contacts or Glasses Neurological History: Reports: Hx Headaches, Hx Migraine - EXCEDRIN ONEIL 1-2 TABS PRN, 11/02/15 LAST EPISODE Denies: Other Neuro Impairments/Disorders Psychiatric History: Denies: Hx Panic Disorder - Surgical History Surgery Procedure, Year, and Place: ganglion cyst removed May 2013 [facility]. KIDNEY STONES 2008. left knee scope Hx Anesthesia Reactions: No Infectious Disease History: No Infectious Disease History: Denies: Hx Clostridium Difficile, Hx Hepatitis, Hx Human Immunodeficiency Virus (HIV), Hx of Known/Suspected MRSA, Hx Shingles, Hx Tuberculosis, Hx Known/ Suspected VRE, Hx Known/Suspected VRSA, History Other Infectious Disease, Traveled Outside the [place] in Last 30 Days - Family History Known Family History: Positive: Hypertension, Diabetes Negative: Cardiac Disease - Social History Alcohol Use: Rare Alcohol Amount: 3-4 DRINKS/ YEAR Hx Substance Use: No Substance Use Type: Reports: None Hx Tobacco Use: Yes Smoking Status (MU): Heavy Every Day Tobacco Smoker Type: Cigarettes Amount Used/How Often: < 1/2 ppd 10 YEARS Length of Time of Smoking/Using Tobacco: 10 YEARS Have You Smoked in the Last Year: Yes Review of Systems Positive: Fever - no thermometer , Fatigue - with body aches Negative: Palpitations, Chest Pain Negative: Shortness Of Breath, Cough Positive: Diarrhea - multiple times on saturday/saturday . Negative: Abdominal Pain, Vomiting, Nausea Positive: flank pain. Negative: burning, dysuria, hematuria, pain Negative: Headache All Other Systems Reviewed And Are Negative: Yes Physical Exam Vital Signs On Initial Exam: Initial Vitals Temp Pulse Resp BP Pulse Ox 98 F 102 16 134/98 97 06/17/18 09:50 06/17/18 09:50 06/17/18 09:50 06/17/18 09:50 06/17/18 09:50 Appearance: Positive: Well-Appearing, No Pain Distress, Well-Nourished Skin: Positive: Warm, Dry Head/Face: Positive: Normal Head/Face Inspection Eyes: Positive: EOMI Respiratory/Lung Sounds: Positive: Clear to Auscultation, Breath Sounds Present Cardiovascular: Positive: Normal, RRR. Negative: Murmur, Leg Edema Left, Leg Edema Right Abdomen Description: Positive: Nontender, Soft, CVA Tenderness (R), CVA Tenderness (L) - increased on left Bowel Sounds: Positive: Present Musculoskeletal: Positive: Strength/ROM Intact, Pain @ - right greater tubercle Neurological: Positive: Normal, Sensory/Motor Intact Diagnostics - Vital Signs Vital Signs Temp Pulse Resp BP Pulse Ox 06/17/18 09:50 98 F 102 16 134/98 97 - Laboratory Lab Results: Lab Results 06/17/18 Range/Units 10:06 Urine Color Yellow Urine Appearance Cloudy Urine pH 5.0 (5-9) Ur Specific Tower 1.021 (1.010-1.030) Urine Protein Negative (Negative) Urine Ketones Negative (Negative) Urine Blood Negative (Negative) Urine Nitrate Positive A (Negative) Urine Bilirubin Negative (Negative) Urine Urobilinogen Negative (Negative) Ur Leukocyte Esterase 2+ A (Negative) Urine WBC (Auto) 3+(>20/hpf) A (Absent) Urine RBC (Auto) 2+(6-10/hpf) A (Absent) Urine Bacteria Absent (Absent) Urine Glucose Negative (Negative) Result Diagrams: 06/17/18 09:35 06/17/18 09:35 Lab Statement: Any lab studies that have been ordered have been reviewed, and results considered in the medical decision making process. Re-Evaluation - Re-Evaluation First Eval Change: Unchanged - Patient continues to feel bilateral flank pain Back Pain Course/Dx - Course Course Of Treatment: During the course of treatment, the patient is evaluated for bilateral flank pain, darkened urine, UTI symptoms and intermittent subjective fevers over the past several days. She feels this is been worsening. She has a history of pyelonephritis as well as nephrolithiasis. CT abdomen pelvis obtained 1 year ago which showed a likely pyelonephritis, however patient left AGAINST MEDICAL ADVICE. She was sent home on 2 weeks Bactrim, however states she did not complete this course. However her symptoms improved. Urologist is Dr. Carpenter in [place] and she has been seen at [place] in the past. She has never been seen by one of our urologists before. Today on CT, there is noted to be a right pyelonephritis with gas within the collecting system. 0.7 cm upper pole calyceal stone. Negative for obstructing right ureteral stone. At [facility], no urology is available. Patient will need IV antibiotics and urology consult. Called [facility] at 11:50 AM. She is given 1 g Rocephin and 1 L fluids. Patient is stable, claiming at 3/10 pain bilaterally, worse to the left side. On physical examination, she has bilateral CVA tenderness, again worse left side. Lungs CTA, RRR. Patient appears well, nondiaphoretic and nontoxic appearing. UA 2+ leuks, 3+ WBC, 2+ RBC. Discussed case with Dr. Wilson in the ED who agrees to accept patient. Discussed with patient who agrees to the [facility]. Patient is refusing ambulance and will only go by private car. She is stable, vital signs are stable, normal white count and no evidence of septicemia. Discussed with Dr. Palmer who agrees to transfer plan. 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 - Critical Care Time Critical Care Time: 30-74 min Discharge - Sign-Out/Discharge Documenting (check all that apply): Patient Departure - Discharge Plan Condition: Good Disposition: TRANS HIGHER LVL OF CARE FAC Referrals: No Primary Care Phys,NOPCP [Primary Care Provider] - - Billing Disposition and Condition Condition: GOOD Disposition: Trans Higher Lvl of Care Fac
[2018-06-17 10:35] LABS: ABS Basophils 0 10^3/ul (0-0.2); ABS Eosinophils 0.1 10^3/ul (0-0.6); ABS Lymphocytes 1.8 10^3/ul (1.0-4.8); ABS Monocytes 0.7 10^3/ul (0-0.8); ABS Neutrophils 6.4 10^3/ul (1.5-7.7); ABS Nucleated RBC 0 10^3/ul; Eosinophil % 1.3 %; Hematocrit 47 % (35-47); Hemoglobin 16.1 g/dl (12.0-16.0); Mean Corpuscular HGB Conc 34 g/dl (31-36); Mean Corpuscular Hemoglobin 32 pg (27-31); Mean Corpuscular Volume 95 fL (80-97); Nucleated Red Blood Cells % 0; Platelet Count 220 10^3/ul (150-450); Red Blood Count 4.97 10^6/ul (4.00-5.40); Red Cell Distribution Width 13 % (10.5-15)
[2018-06-17 10:53] LABS: ALT 16 U/L (7-52); AST 17 U/L (13-39); Albumin 4.3 g/dL (3.2-5.2); Albumin/Globulin Ratio 1.2 (1-3); Alkaline Phosphatase 100 U/L (34-104); Amylase 47 U/L (29-103); Anion Gap 7 mmol/L (2-11); Blood Urea Nitrogen 10 mg/dL (6-24); CO2 Carbon Dioxide 26 mmol/L (22-32); Calcium 9.7 mg/dL (8.6-10.3); Chloride 106 mmol/L (101-111); Creatine Kinase 60 U/L (10-223); EGFR Non-African American 71.6 (>60); Globulin 3.6 g/dL (2-4); Glucose 105 mg/dL (70-100); Magnesium 2.1 mg/dL (1.9-2.7); Potassium 4.2 mmol/L (3.5-5.0); Sodium 139 mmol/L (135-145); Total Protein 7.9 g/dL (6.4-8.9)
[2018-06-17 10:58] LABS: HCG Pregnancy < 0.60 mIU/mL
[2018-06-17 12:39] VITALS: BP 130/86
--- NOTE | 2018-06-19 07:44 | ED ---
Progress - Progress Note Progress Note: Patient's preliminary urine culture reveals greater than 100,000 Escherichia coli. She was diagnosed with pyelonephritis and nephrolithiasis and advised to go to [facility]. Patient declined and left AMA however ciprofloxacin was prescribed. Spoke w/ pt who reports she did not go to [facility] however she is taking cipro antibiotic and is feeling "a hell of a lot better". She reports that she called Dr. Lala's office who is aware of her current situation and has her on a cancellation list to be seen regarding her issue. Advised if worse to return to ED. Cipro is an appropriate preliminary choice given the organism. Explained we will call back tomorrow if anbx needs to be changed. Pt voices understanding and agrees w/ plan. Re-Evaluation - Re-Evaluation First Eval Change: Unchanged - Patient continues to feel bilateral flank pain Course/Dx - Course Course Of Treatment: During the course of treatment, the patient is evaluated for bilateral flank pain, darkened urine, UTI symptoms and intermittent subjective fevers over the past several days. She feels this is been worsening. She has a history of pyelonephritis as well as nephrolithiasis. CT abdomen pelvis obtained 1 year ago which showed a likely pyelonephritis, however patient left AGAINST MEDICAL ADVICE. She was sent home on 2 weeks Bactrim, however states she did not complete this course. However her symptoms improved. Urologist is Dr. Carpenter in [place] and she has been seen at [place] in the past. She has never been seen by one of our urologists before. Today on CT, there is noted to be a right pyelonephritis with gas within the collecting system. 0.7 cm upper pole calyceal stone. Negative for obstructing right ureteral stone. At [facility], no urology is available. Patient will need IV antibiotics and urology consult. Called [facility] at 11:50 AM. She is given 1 g Rocephin and 1 L fluids. Patient is stable, claiming at 3/10 pain bilaterally, worse to the left side. On physical examination, she has bilateral CVA tenderness, again worse left side. Lungs CTA, RRR. Patient appears well, nondiaphoretic and nontoxic appearing. UA 2+ leuks, 3+ WBC, 2+ RBC. Discussed case with Dr. Wilson in the ED who agrees to accept patient. Discussed with patient who agrees to the [facility]. Patient is refusing ambulance and will only go by private car. She is stable, vital signs are stable, normal white count and no evidence of septicemia. Discussed with Dr. Palmer who agrees to transfer plan. 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 - Critical Care Time Critical Care Time: 30-74 min Discharge - Sign-Out/Discharge Documenting (check all that apply): Post-Discharge Follow Up - Discharge Plan Condition: Good Disposition: AGAINST MEDICAL ADVICE Prescriptions: Ciprofloxacin TAB* [Cipro 500 MG TAB*] 500 mg PO BID #14 tab Referrals: No Primary Care Phys,NOPCP [Primary Care Provider] - Spencer Carpenter MD [Medical Doctor] - Balwinder Lala MD [Medical Doctor] - Additional Instructions: Go directly to the emergency room at [facility] Please take Ciprofloxacin 500mg twice daily x 7 days - your first dose is tonight As discussed, you are leaving against medical advise and I still advise you to go to to the ED Please call Dr. Lala's office as well for continued follow up - Billing Disposition and Condition Condition: GOOD Disposition: Against Medical Advice
== END | disposition left against medical advice (07) ==
LOC: ED 09:42
DX: N12 Tubulo-interstitial nephritis, not specified as acute or chronic (principal); R10.84 Generalized abdominal pain; R50.9 Fever, unspecified; R53.1 Weakness; F17.210 Nicotine dependence, cigarettes, uncomplicated
CPT/HCPCS: 36415; 74176; 80053; 81003; 81015; 82150; 82550; 83605; 83690; 83735; 84702; 85025; 86140; 87077; 87086; 87186; 87491; 87591; 96361; 96365; 96366; 99283; J0696

== ENCOUNTER 2018-06-27 00:11 | Emergency (ER) | payer OTHER ==
[2018-06-27 00:21] VITALS: BP 125/84
== END 2018-06-27 00:46 | disposition left against medical advice (07) ==
LOC: ED 00:11
DX: R10.84 Generalized abdominal pain (principal); Z53.21 Procedure and treatment not carried out due to patient leaving prior to being seen by health care provider

== ENCOUNTER 2018-07-31 16:43 | Emergency (ER) | payer OTHER ==
--- OUTSIDE RECORDS SUMMARY | 2018-07-31 17:03 | XMS REPORT | Continuity of Care Document ---
:1985 External Reference #:[id number] Author Name Libby Gilbert Care Team Providers Name Role Phone Patient's Choice Primary Care Physician Unavailable Payers Date Identification Numbers Payment Provider Subscriber Policy Number: [id number] [employer] Andriy Feliz PayID: [id number] [address] [address] [place] [address] Effective: 2014 Policy Number: [id number] Medicaid Andriy Feliz Expires: 2018 PayID: [id number] [address] [place] [address] Expires: 2015 Policy Number: [employer] Andriy Feliz [id number] Onset: 04/09/2014 PayID: [id number] [address] [facility] [address] [place] [address] Onset: 04/18/2015 Policy Number: [id number] [employer] Andriy Feliz Group Name: [phone] [address] [facility] [address] PayID: [place] [address] Advance Directives Description No Information Available Problems Date Description Provider Status Onset: 05/15/2018 Disorder of shoulder Katie Alvarez MD Active Onset: 05/15/2018 Injury of shoulder region Katie Alvarez MD Active Onset: 05/15/2018 Radiculopathy, cervical region Katie Alvarez MD Active Family History Date Family Member(s) Observation Comments General Arthritis General Breast Cancer General Prostate Cancer Social History Type Date Description Comments Sex Unknown 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 ETOH Use Denies alcohol use Tobacco Use Start: Unknown Patient is a current smoker, smokes every day Smoking Status Reviewed: 07/08/18 Patient is a current smoker, smokes every day Allergies, Adverse Reactions, Alerts Description No Known Drug Allergies Medications Medication Date Status Form Strength Qnty SIG Indications Ordering Provider Diclofenac Active Tablets 75mg 60tabs take [address] M75.[address] falguni Alvarez MD twice a day with food Ibuprofen 0 Active as needed Unknown 000 Tylenol Active Tablets 325mg take 2 tabs Unknown 000 as needed every 6 hours for pain/fever Naproxen Hx Tablets 500mg 60tabs 1 tablet S83.005D Dirk 016 - twice a [place], day, stop M.D. 018 if stomach pain or upset Pigeon Hx Tablets 5-325mg 45tabs 1 by mouth S83.005A Dirk 016 - every 8 [place], hours as M.D. 018 needed pain, use this sparingly and use less as able Pigeon Hx Tablets 5-325mg 50tabs 1-2 by Katie 016 - mouth every MD Antonio 4 to 6 016 hours as needed pain No Active Hx Unknown Medications 015 - 015 Pigeon Hx Tablets 5-325mg 30tabs 1-2 by Steph 015 - mouth every Gallito 4 hours as Patricia burks 015 needed No Active Hx Unknown Medications 014 - 015 Medications Administered in Office Medication Date Status Form Strength Qnty SIG Indications Ordering Provider Depomedrol Administered Injection Krysten 40MG 016 Bitting, RPA-C Depomedrol Administered Injection Krysten 40MG 016 Bitting, RPA-C Depomedrol Administered Injection Jami 80MG 015 Patricia Woodruff Immunizations Description No Information Available Vital Signs Date Vital Result Comment 07/08/2018 7:59am Height 65 inches 5'5" Weight 150.00 lb BP Systolic 122 mmHg BP Diastolic 82 mmHg BMI (Body Mass Index) 25.0 kg/m2 06/12/2018 3:33pm Height 65 inches 5'5" Weight 150.00 lb Heart Rate 57 /min Body Temperature 97.6 F Pain Level 2 O2 % BldC Oximetry 98 % BMI (Body Mass Index) 25.0 kg/m2 05/15/2018 2:31pm Height 65 inches 5'5" Weight 150.00 lb Heart Rate 72 /min BP Systolic Sitting 132 mmHg BP Diastolic Sitting 80 mmHg Pain Level 4 BMI (Body Mass Index) 25.0 kg/m2 12/06/2015 3:49pm Height 67 inches 5'7" Weight 145.00 lb Body Temperature 97.9 F Pain Level 3 BMI (Body Mass Index) 22.7 kg/m2 11/23/2015 11:23am Height 67 inches 5'7" Weight 145.00 lb Body Temperature 98.3 F Pain Level 7 BMI (Body Mass Index) 22.7 kg/m2 11/17/2015 10:08am Height 67 inches 5'7" Weight 145.00 lb Body Temperature 97.7 F Pain Level 9 BMI (Body Mass Index) 22.7 kg/m2 10/26/2015 2:52pm Height 67 inches 5'7" Weight 145.00 lb Heart Rate 72 /min BP Systolic 140 mmHg BP Diastolic 87 mmHg Pain Level 6 BMI (Body Mass Index) 22.7 kg/m2 08/10/2015 1:47pm Height 67 inches 5'7" Weight 145.00 lb Pain Level 7 BMI (Body Mass Index) 22.7 kg/m2 07/08/2015 2:04pm Height 67 inches 5'7" Weight 145.00 lb Pain Level 2 BMI (Body Mass Index) 22.7 kg/m2 06/20/2015 8:14am Height 67 inches 5'7" Weight 145.00 lb BMI (Body Mass Index) 22.7 kg/m2 06/14/2015 8:13am Height 67 inches 5'7" Weight 145.00 lb Pain Level 5 BMI (Body Mass Index) 22.7 kg/m2 05/04/2015 11:29am Height 67 inches 5'7" Weight 145.00 lb Pain Level 3 3-4 BMI (Body Mass Index) 22.7 kg/m2 04/27/2015 1:51pm Height 67 inches 5'7" Weight 145.00 lb Pain Level 4 BMI (Body Mass Index) 22.7 kg/m2 02/17/2015 3:00pm Height 67 inches 5'7" Weight 145.00 lb Pain Level 7 throbbing BMI (Body Mass Index) 22.7 kg/m2 09/09/2014 3:36pm Height 67 inches 5'7" Weight 145.00 lb Pain Level 0 BMI (Body Mass Index) 22.7 kg/m2 07/12/2014 2:45pm Height 67 inches 5'7" Weight 145.00 lb Pain Level 3 BMI (Body Mass Index) 22.7 kg/m2 06/28/2014 1:38pm Height 67 inches 5'7" Weight 145.00 lb Pain Level 3 BMI (Body Mass Index) 22.7 kg/m2 06/11/2014 10:10am Height 67 inches 5'7" Weight 145.00 lb Heart Rate 78 /min BP Systolic 115 mmHg BP Diastolic 69 mmHg BMI (Body Mass Index) 22.7 kg/m2 06/07/2014 10:25am Height 67 inches 5'7" Weight 148.00 lb BMI (Body Mass Index) 23.2 kg/m2 Results Test Date Facility Test Result H/L Range Note Laboratory test 11/15/2015 [facility] Surgical SEE RESULT [address] Pathology BELOW [place], [place] [id number] [phone] Laboratory test 11/15/2015 [facility] Negative N Negative [address] (HCG) [place] [address] [phone] Surgical 06/18/2014 [facility] S RUN DATE: [address] [place] [address] NOTE> [phone] 1 SEE RESULT BELOW Name: ANDRIY FELIZ : [address]: Silver Gaona MD Acct: [id number] Unit: [id number] AGE: 30 Location: OR Re11/15/15 SEX: F Status: REG SD SPEC: [id number] MARIN: 11/15/15- [facility] DR: Silver Gaona MD REQ: [id number] RECD: 11/15/15 STATUS: SOUT _ ORDERED: LEVEL III FINAL DIAGNOSIS Knee, left, arthroscopic shavings: -- Benign synovial tissue fragments and cartilaginous tissue. PRE-OPERATIVE DIAGNOSIS Unspecified dislocation of left patella. POST-OPERATIVE DIAGNOSIS Patella instability GROSS DESCRIPTION The specimen is received in formalin labeled, Left Knee Shavings, and consists of a 2.7 x 2.0 x 0.5 cm aggregate of yellow and white tissue fragments admixed with red- brown blood clot. [employer] sections, one cassette. Signed (signature on file) Yola Richardson MD 1244 END OF REPORT * ML=Testing performed at Main Lab DEPARTMENT OF PATHOLOGY, [facility] [employer] [place], [place] [address] Zurdo Johnston M.D. Director [facility] # [id number] 2 If is still suspected, please repeat test after 48 to 72 hours. This test detects intact HCG only and is indicated for the early detection of . 3 RUN DATE: 06/21/14 [facility] LAB LIVE PAGE 1 RUN TIME: 1205 [facility] [employer] [place], [place] [address] Specimen Inquiry Name: ANDRIY FELIZ : [address]: Jami Woodruff MD Acct: [id number] Unit: [id number] AGE: 29 Location: [facility] Re06/18/14 SEX: F Status: REG [facility] SPEC: [id number] MARIN: 06/18/14- [facility] DR: Jami Woodruff MD REQ: [id number] RECD: 06/18/14 STATUS: SOUT _ ORDERED: LEVEL III FINAL DIAGNOSIS Soft tissue, right wrist, excision: -- Ganglion cyst. PRE-OPERATIVE DIAGNOSIS Right wrist ganglion. GROSS DESCRIPTION The specimen is received in formalin labeled, Right Wrist Ganglion, and consists of a 1.0 x 0.6 x 0.4 cm mi-pink rubbery soft tissue fragment, which is submitted entirely in one cassette. Signed (signature on file) Zurdo Johnston MD 1204 END OF REPORT * ML=Testing performed at Main Lab DEPARTMENT OF PATHOLOGY, [address] [place] [address] Zurdo Johnston M.D. Director [facility] # [id number] Procedures Date Code Description Status 11/15/2015 28510 Arthroscopy,Knee, Synovectomy Plica Or Shelf Resect Completed 08/10/2015 Aspiration &/Or Inj Of Ganglion Cyst(S) Any Location Completed 08/10/2015 Aspiration &/Or Inj Of Ganglion Cyst(S) Any Location Completed 08/10/2015 Aspiration &/Or Inj Of Ganglion Cyst(S) Any Location Completed 02/17/2015 Aspiration &/Or Inj Of Ganglion Cyst(S) Any Location Completed 06/18/2014 66079 Excision Ganglion Wrist/ Dorsal Or Volar; Primary Completed 06/18/2014 66568 Excision Ganglion Wrist/ Dorsal Or Volar; Primary Completed 06/18/2014 74254 Excision Ganglion Wrist/ Dorsal Or Volar; Primary Completed 06/18/2014 91679 Excision Ganglion Wrist/ Dorsal Or Volar; Primary Completed 06/07/2014 80043 Rad Exam; Wrist, Comp, Min 3 Views Completed 06/07/2014 42554 Rad Exam; Wrist, Comp, Min 3 Views Completed 12/07/2013 89804 Rad Exam; Wrist, Comp, Min 3 Views Completed 12/07/2013 64458 Rad Exam; Wrist, Comp, Min 3 Views Completed Encounters Type Date Location Provider Dx Diagnosis Office Visit 06/12/2018 Orthopedic Katie Alvarez MD M75.41 Impingement 3:15p Services Of [facility]. syndrome of right shoulder S46.101D Unsp injury of musc/fasc/tend long hd bicep, right arm, subs Office Visit 05/15/2018 2:30p Orthopedic Katie Alvarez M75.41 Impingement Services Of syndrome of right C.M.A. shoulder S46.101A Unsp injury of musc/fasc/tend long hd bicep, right arm, init M54.12 Radiculopathy, cervical region Office Visit 10/26/2015 2:45p Orthopedic Silver Gaona, S83.005A Unspecified Services Of M.D. dislocation of C.M.A. left patella, initial encounter Office Visit 08/10/2015 1:20p Orthopedic Krysten M67.431 Ganglion, right Services Of Bitting, wrist C.M.A. RPA-C M67.431 Ganglion, right wrist M67.431 Ganglion, right wrist Office Visit 07/08/2015 2:00p Orthopedic Katie Alvarez, S83.232A Complex tear Services Of of [facility] C.M.[facility]. [facility], current injury, l knee, init S83.8x2D Sprain of other specified parts of left knee, subs encntr Office Visit 02/17/2015 3:00p Orthopedic Jami M67.431 Ganglion, right Services Of Patricia Woodruff wrist C.M.A. Office Visit 06/07/2014 10:15a Orthopedic Jami 842.00 Sprains & Services Of Jc Woodruff M.D. Strains Wrist & AT [place] Hand Unspec Site 842.00 Sprains & Strains Wrist & Hand Unspec Site Office Visit 12/07/2013 8:30a Orthopedic Jami Woodruff, 842.00 Sprains & Services Of Jc Gomez Strains Wrist AT [place] & Hand Unspec Site Plan of Treatment 06/12/2018 - Katie Alvarez, MDM75.41 Impingement syndrome of right shoulderFollow up:Follow up: after MRIS46.101D Unspecified injury of muscle, fascia and tendon of long head
[2018-07-31 17:08] VITALS: BP 144/95
--- NOTE | 2018-07-31 18:26 | UC ---
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 - History Of Current Complaint Chief Complaint: UCGeneralIllness Stated Complaint: RIB INJURY Time Seen by Provider: 07/31/18 17:18 Hx Obtained From: Patient Hx Last Menstrual Period: one week ago ?: No Pain Intensity: 8 - Allergies/Home Medications Allergies/Adverse Reactions: Allergies Allergy/AdvReac Type Severity Reaction Status Date / Time Adhesive Tape Allergy Rash Verified 07/31/18 17:08 Latex, Natural Rubber Allergy Rash Verified 07/31/18 17:08 prednisone Allergy See Comment Verified 07/31/18 17:08 PMH/Surg Hx/FS Hx/Imm Hx Previously Healthy: Yes - Surgical History Surgical History: Yes Surgery Procedure, Year, and Place: ganglion cyst removed May 2013 [facility]. KIDNEY STONES 2008. left knee scope - Family History Known Family History: Positive: Hypertension, Diabetes Negative: Cardiac Disease - Social History Alcohol Use: Rare Alcohol Amount: 3-4 DRINKS/ YEAR Substance Use Type: None Smoking Status (MU): Heavy Every Day Tobacco Smoker Type: Cigarettes Amount Used/How Often: < 1/2 ppd 10 YEARS Length of Time of Smoking/Using Tobacco: 10 YEARS Have You Smoked in the Last Year: Yes When Did the Patient Quit Smoking/Using Tobacco: 10/31/15 Household Exposure Type: Cigarettes Review of Systems All Other Systems Reviewed And Are Negative: Yes - Comments Additional Review of Systems Comments: Constitutional: Negative Eyes: Negative ENT: Negative Cardiovascular: Negative Respiratory: Negative Gastrointestinal: Negative Genitourinary: Negative Musculoskeletal: right rib pains Neurological: Negative Psychological: Normal All Other Systems Reviewed And Are Negative: Yes Physical Exam - Summary Physical Exam Summary: Vital Signs Reviewed: Yes Skin: Positive: Warm Head/Face: Positive: Normal Head/Face Inspection Eyes: Positive: Normal ENT: Positive: Normal ENT inspection Neck: Positive: Supple Respiratory/Lung Sounds: Positive: Clear to Auscultation Cardiovascular: Positive: Normal, RRR, S1, S2 Abdomen Description: Positive: Nontender Musculoskeletal: Positive: right chestwall tenderness in region of T5-6 Neurological: Positive: Normal Psychiatric: Positive: Normal, Affect/Mood Appropriate Vital Signs: Initial Vital Signs Temp 36.7 C 07/31/18 17:06 Pulse 85 07/31/18 17:06 Resp 12 07/31/18 17:06 BP 144/95 07/31/18 17:06 Pulse Ox 100 07/31/18 17:06 Truncal Trauma Course/Dx - Course Course Of Treatment: XR right rib series NEG for fx, pain control and manual splinting - Differential Dx/Diagnosis Provider Diagnosis: Contusion of rib on right side Discharge - Sign-Out/Discharge Documenting (check all that apply): Patient Departure All imaging exams completed and their final reports reviewed: Yes - Discharge Plan Condition: Stable Disposition: HOME Prescriptions: oxyCODONE/Acetamin 5/325 MG* [Percocet 5/325 TAB*] 1 tab PO Q8H PRN 5 Days #15 tab MDD 3 PRN Reason: Pain Patient Education Materials: Rib Contusion (ED) Referrals: No Primary Care Phys,NOPCP [Primary Care Provider] - - Billing Disposition and Condition Condition: STABLE Disposition: Home
== END 2018-07-31 18:40 | disposition home or self-care (01) ==
LOC: UCEAST 16:43
DX: S20.211A Contusion of right front wall of thorax, initial encounter (principal); F17.210 Nicotine dependence, cigarettes, uncomplicated; Z91.09 Other allergy status, other than to drugs and biological substances; Z91.040 Latex allergy status; Z88.8 Allergy status to other drugs, medicaments and biological substances; W19.XXXA Unspecified fall, initial encounter; Y92.9 Unspecified place or not applicable
CPT/HCPCS: 99212; G0463

== ENCOUNTER 2019-01-07 16:09 | Emergency (ER) | payer OTHER ==
[2019-01-07 16:15] VITALS: BP 160/120
--- OUTSIDE RECORDS SUMMARY | 2019-01-07 18:07 | XMS REPORT | Continuity of Care Document ---
:1985 External Reference #:[id number] Author Name Lacy Vincent, GUSTABO Address [address] [facility] [place] [address] Care Team Providers Name Role Phone Choco Yuen - Surgery Care Team Information Transmitter Engineer [phone] Bailee Juarez M.D. - Family Medicine Care Team Information Transmitter Engineer Unavailable Problems Active Problems Provider Date Benign paroxysmal positional vertigo Alejandro Byrne M.D. Onset: 05/18/2013 Social History Type Date Description Comments Sex Unknown ETOH Use Denies alcohol use Tobacco Use Start: Unknown Heavy tobacco smoker (more has used the patch in than 10 cigarettes/day) the past, chantix caused terrible nightmares, quit best with cold turkey Recreational Drug Use Denies Drug Use Allergies, Adverse Reactions, Alerts Active Allergies Reaction Severity Comments Date Adhesives 07/28/2014 Prednisone palpitations 12/31/2018 Inactive Allergies NKDA 03/10/2013 Medications Active Medications SIG Qnty Indications Ordering Provider Date Nexplanon 68mg 2016 Unknown Implant Immunizations Description No Information Available Vital Signs Date Vital Result Comment 12/31/2018 8:57am BP Systolic 122 mmHg BP Diastolic 80 mmHg Heart Rate 78 /min Body Temperature 97.7 F Respiratory Rate 16 /min Height 64.5 inches 5'4.50" measured 12/31/18 Weight 161.38 lb BMI (Body Mass Index) 27.3 kg/m2 Right Visual Acuity Distance 20/20 Left Visual Acuity Distance 20/20 09/04/2016 3:06pm BP Systolic 110 mmHg BP Diastolic 82 mmHg Heart Rate 84 /min Body Temperature 98.1 F Height 67 inches 5'7" Weight 156.38 lb BMI (Body Mass Index) 24.5 kg/m2 Results Test Date Facility Test Result H/L Range Note Laboratory test 12/31/2018 [facility]) TSH <pending> 0.5-5.0 finding Procedures Description No Information Available Medical Devices Description No Information Available Encounters Type Date Location Provider Dx Diagnosis Office Visit 12/31/2018 Main Office Lacy Vincent, Z00.00 Encntr for general 9:00a [employer] ASSIST[employer] adult medical exam w/o abnormal findings Z12.31 Encntr screen mammogram for malignant neoplasm of breast F17.210 Nicotine dependence, cigarettes, uncomplicated D48.60 Neoplasm of uncertain behavior of unspecified breast Assessments Date Code Description Provider 12/31/2018 Z00.00 Encounter for general adult medical Lacy Vincent NP examination without abnormal findings 12/31/2018 Z12.31 Encounter for screening mammogram for Lacy Vincent NP malignant neoplasm of breast 12/31/2018 F17.210 Nicotine dependence, cigarettes, Lacy Vincent NP uncomplicated 12/31/2018 D48.60 Neoplasm of uncertain behavior of Lacy Vincent NP unspecified breast Plan of Treatment 12/31/2018 - Lacy Vincent NPZ00.00 Encounter for general adult medical examination without abnormal findingsComments:Encourage an active and healthy lifestyle with proper eating habits including fruits, vegetables, 6-8 glasses of water a day and monitoring portion size. Recommend 30 minutes of daily physical activityincluding walking, aerobic exercise, sports, yoga or dance. Any activity is better than no activity.Recommend routine eye and dental exams. Encourage 1200 units of calcium and 1000 units of vitamin D daily. Next physical is due in 1-2 years.Z12.31 Encounter for screening mammogram for malignant neoplasm of breastComments:A mammogram has been [id number] Nicotine dependence, cigarettes, uncomplicatedComments:Patient was counselled on the importance of smoking [id number] Neoplasm of uncertain behavior of unspecified breastNew Xrays:Digital Mammo [facility], Ordered: Comments:areolar abnormalities, check with mammogram, strong family hx of breast cancerAllComments:Medication Management Patient Understands medications he 's taking? Yes No Are there Barriers to Adherence? Yes No Has the patient been asked about herbal supplements and therapies, andOTC meds? Yes No Care Plan1. Patient has been queried about patient's goals/ preferences and functional/lifestyle goals at relevant visits. If relevant, describe: na2. Treatment goals as explained to the patient: above3. Are there barriers to meeting treatment goals? Yes No If Yes, please describe: smoking, financial 4. Self-Management goals as described to the patient: Yes NoAs always, we strongly encourage a healthy diet and making physical activity a part of your every day life. If you have questions about how or where to start, please contact the office. Functional Status Description No Information Available Mental Status Description No Information Available Referrals Description No Information Available
== END 2019-01-07 18:10 | disposition left against medical advice (07) ==
LOC: ED 16:09
DX: Z53.21 Procedure and treatment not carried out due to patient leaving prior to being seen by health care provider (principal)
CPT/HCPCS: 99281